=== PATIENT | female | born 2000 | race Caucasian/White ===

== ENCOUNTER 2023-01-06 23:25 | Inpatient (IN) ==
[2023-01-06] MEDS ORDERED: LIDOCAINE 1% LOCAL 20 ML VIAL INFIL PRN (23:57)
[2023-01-06] MEDS ORDERED: OXYTOCIN 30 UNITS/500 ML BAG IV PRN (23:57)
[2023-01-07] MEDS: LACTATED RINGER'S 1,000 ML IV PRN ×2 (00:06→06:36)
--- NOTE | 2023-01-07 00:06 | History & Physical Report ---
Date of Service January 07, 2023 Assessment & Plan (1) Post-dates : Plan: Admit. GBS prophylaxis History of Present Illness Chief Complaint: labor Primary Care Provider: NO PCP 22 F P0000 at 40.2 admitted in early labor. GBS is positive. Allergies Allergy/AdvReac Type Severity Reaction Status Date / Time Penicillins Allergy Hives Verified 01/06/23 10:21 Home Medications Medication Instructions Recorded Confirmed Type famotidine 20 mg tablet 20 mg PO DAILY 01/06/23 01/06/23 History prenat.vits,annette,crs-brrw-bjnbs 1 tab PO DAILY 01/06/23 01/06/23 History Patient History Surgical History History of appendectomy Social History Smoking Status: Never smoker Hx Alcohol Use: No Hx Substance Use: No Preferred Language: Italian Proof Coins Inspector Required: No Beliefs That Will Affect Care: None marital status: Single Current Living Situation: Significant Other Current Living Situation Comment: another roomate Feels Safe at Home: Yes Safety Concerns: Feels Safe At This Time OB History GBS positive [employer] History LGSIL Review of Systems All systems reviewed & are unremarkable except as noted in HPI & below Physical Exam Constitutional: WD/WN, vitals as above Eyes: PERRL, conjunctivae normal, anicteric sclerae Respiratory: normal respiratory effort, lungs clear to auscultation Cardiovascular: RRR, no murmur, no edema Gastrointestinal (Abdomen): Inspection/Auscultation: abdomen normal to inspection Musculoskeletal: Extremities: extremities normal to inspection Skin: no rashes, warm and dry Psychiatric: A+Ox3, euthymic affect Genitourinary: OB Exam Abdomen: + fundal height and + vertex Manual OB Exam: + cervical dilation 4 cm, + cervical effacement 90% and + station -2 Results & Data Vital Signs (Past 12 Hours) Vital Signs Temp Pulse Resp BP 01/06/23 23:45 36.8 C 118 H 18 120/66 Code Status & VTE Plan VTE Prophylaxis Plan VTE Prophylaxis will be ordered: No
[2023-01-07] MEDS ORDERED: ceFAZolin 2000MG 2,000 MG/15 ML SYR IV ONE (00:15)
[2023-01-07 00:39] LABS: Hematocrit (blood only) 35.4 % (37.0-47.0); Hemoglobin 12.1 g/dl (12.0-16.0); Mean Corpuscular Hemoglobin 33.2 pg (25.0-34.0); Mean Corpuscular Hgb Conc 34.2 g/dL (32.0-36.0); Mean Corpuscular Volume 97.3 fL (80.0-100.0); Mean Platelet Volume 12.3 fL (9.4-12.4); Platelet Count 132 K/uL (130-400); RDW Coefficient of Variation 12.6 % (11.5-14.5); RDW Standard Deviation 44.8 fL (36.4-46.3); Red Blood Count 3.64 M/uL (4.20-5.40); White Blood Count 10.67 K/ul (4.8-10.8)
[2023-01-07] MEDS ORDERED: ePHEDrine sulfate 50 MG/ML AMP ONE (02:17)
[2023-01-07] MEDS ORDERED: fentaNYL citrate PF 100 MCG/2 ML VIAL ONE (02:17)
[2023-01-07] MEDS ORDERED: LIDOCAINE 2%/EPINEPHRINE 1:200,000 20 ML PF ONE (02:18)
[2023-01-07] MEDS ORDERED: fentaNYL 2MCG/ML ROPIVACAINE 1.25MG/ML 100 ML BAG EPI ONE (02:18)
[2023-01-07] MEDS ORDERED: SODIUM CHLORIDE 0.9% PF INJ 10 ML VIAL ONE (02:18)
[2023-01-07] MEDS ORDERED: BUPIVACAINE 0.25% PF 30 ML VIAL ONE (02:18)
--- NOTE | 2023-01-07 02:50 | Anesthesiology Consultation ---
Date of Service January 07, 2023 Assessment & Plan Chart Review Chart Review: Acceptable Risk for Labor Epidural Consults Requested none History Height/Weight Height: 5 ft 4 in Weight: 97.522 kg Allergies Allergy/AdvReac Type Severity Reaction Status Date / Time Penicillins Allergy Hives Verified 01/06/23 10:21 Medications Home Medications Medication Instructions Recorded Confirmed Last Taken famotidine 20 mg tablet 20 mg PO DAILY 01/06/23 01/07/23 Unknown prenat.vits,annette,[id number]-[id number] 1 tab PO DAILY 01/06/23 01/07/23 01/06/23 Active Medications Generic Name Dose Route Start Last Admin Trade Name Freq PRN Reason Stop Dose Admin Lactated Ringer's 1,000 mls @ 125 mls/hr 01/06/23 23:57 01/07/23 02:33 Lr IV 01/08/23 23:56 125 mls/hr .Q8H PRN Infusion L&D Protocol Protocol Past Surgical History Surgical History History of appendectomy Social History Smoking Status: Never smoker Hx Alcohol Use: No Hx Substance Use: No Physical Exam Vital Signs Last Vital Signs Temp 36.8 C 01/07/23 02:39 Pulse 93 H 01/07/23 02:48 Resp 20 01/07/23 02:39 BP 102/57 L 01/07/23 02:48 Pulse Ox 99 01/07/23 02:48 Testing Laboratory Results 01/07/23 00:09 Blood Type A Negative 01/07/23 00:09 Antibody Screen NEGATIVE 01/07/23 00:09
[2023-01-07] MEDS ORDERED: diphenhydrAMINE 50 MG/ML VIAL IV PRN (02:52)
[2023-01-07] MEDS ORDERED: fentaNYL citrate PF 100 MCG/2 ML VIAL EPI STA (02:52)
[2023-01-07] MEDS ORDERED: ePHEDrine sulfate 50 MG/ML AMP IV PRN (02:52)
[2023-01-07] MEDS ORDERED: NALOXONE HCL 1 MG in SODIUM CHLORIDE 0.9% 1000ML 1,000 ML IV PRN (02:52)
[2023-01-07] MEDS ORDERED: SODIUM CHLORIDE 0.9% PF INJ 10 ML VIAL EPI STA (02:52)
[2023-01-07] MEDS ORDERED: LIDOCAINE 2% MPF LOCAL 5 ML VIAL EPI PRN (02:52)
[2023-01-07] MEDS ORDERED: fentaNYL 2MCG/ML ROPIVACAINE 1.25MG/ML 100 ML BAG EPI PRN (02:52)
[2023-01-07] MEDS ORDERED: BUPIVACAINE 0.25% PF 30 ML VIAL EPI PRN (02:52)
[2023-01-07] MEDS ORDERED: NALOXONE HCL 0.4 MG/1 ML VIAL/CARP IV PRN (02:52)
[2023-01-07] MEDS ORDERED: LIDOCAINE 2%/EPINEPHRINE 1:200,000 20 ML PF EPI STA (02:52)
[2023-01-07] MEDS ORDERED: BUPIVACAINE 0.25% PF 30 ML VIAL EPI STA (02:52)
[2023-01-07] MEDS ORDERED: fentaNYL citrate PF 100 MCG/2 ML VIAL EPI PRN (02:52)
[2023-01-07] MEDS ORDERED: NALBUPHINE HCL INJ 10 MG/ML AMP IV PRN (02:52)
[2023-01-07] MEDS ORDERED: ROPIVACAINE 0.5% PF 5 MG/ML 20 ML VIAL EPI PRN (02:52)
[2023-01-07] MEDS ORDERED: SODIUM CHLORIDE 0.9% PF INJ 10 ML VIAL EPI PRN (02:52)
[2023-01-07] MEDS ORDERED: ceFAZolin 1000MG 1,000 MG/7.5 ML SYR IV PRN (06:57)
--- NOTE | 2023-01-07 09:11 | Labor Progress Brief Note ---
Date of Service January 07, 2023 Assessment & Plan Admission and Anticipated Discharge Date Admission Date: January 06, 2023 Physical Exam Genitourinary: Manual OB Exam: + cervical dilation 9 cm, + cervical effacement 100%, + station 0 and + amniotic fluid clear OB Exam Monitor Tracing: + external FHT monitor used, + external uterine monitor used, + category I and + normal FHT variability AROM with [place] clear fluid Results & Data Vital Signs (Past 12 Hours) Vital Signs Temp Pulse Resp BP Pulse Ox 01/07/23 07:34 37.0 C 20 01/07/23 09:07 88 104/52 L 01/07/23 09:05 95 H 98 01/07/23 09:00 104 H 98 01/07/23 08:55 102 H 97 01/07/23 08:53 104 H 93 01/07/23 08:50 106 H 99 01/07/23 08:47 106 H 92 01/07/23 08:45 93 H 100 01/07/23 08:40 96 H 100 01/07/23 08:38 100 H 110/70 01/07/23 08:37 101 H 93 01/07/23 08:35 93 H 100 01/07/23 08:30 111 H 98 01/07/23 08:31 108 H 92 01/07/23 08:25 96 H 99 01/07/23 08:23 105 H 115/66 01/07/23 08:20 106 H 98 01/07/23 08:15 116 H 99 01/07/23 08:10 95 H 97 01/07/23 08:08 100 H 18 111/61 01/07/23 08:05 109 H 100 01/07/23 08:00 114 H 98 01/07/23 07:55 125 H 99 01/07/23 07:53 90 111/74 01/07/23 07:52 104 H 94 01/07/23 07:50 111 H 97 01/07/23 07:45 92 H 95 01/07/23 07:41 103 H 93 01/07/23 07:40 101 H 95 01/07/23 07:39 97 H 116/66 01/07/23 07:35 101 H 99 01/07/23 07:30 102 H 97 01/07/23 07:25 101 H 97 01/07/23 07:24 94 H 116/70 01/07/23 07:20 105 H 93 01/07/23 07:15 96 H 99 01/07/23 07:10 92 H 98 01/07/23 07:08 82 97/53 L 01/07/23 07:05 84 97 01/07/23 07:00 93 H 98 01/07/23 06:55 95 H 98 01/07/23 06:53 100 H 96/53 L 01/07/23 06:50 98 H 100 01/07/23 06:30 16 01/07/23 06:30 16 01/07/23 06:45 95 H 99 01/07/23 06:40 88 98 01/07/23 06:39 90 97/51 L 01/07/23 06:37 96 H 94 01/07/23 06:35 93 H 98 01/07/23 06:23 95 01/07/23 06:23 110 H 01/07/23 06:24 100 H 109/60 01/07/23 06:23 96 H 94 01/07/23 06:18 110 H 96 01/07/23 06:13 93 01/07/23 06:13 110 H 01/07/23 06:13 100 H 93 01/07/23 06:10 101 H 117/62 01/07/23 06:08 100 H 93 01/07/23 06:00 18 01/07/23 06:00 18 01/07/23 06:07 100 H 93 01/07/23 05:30 18 01/07/23 05:30 18 01/07/23 06:03 108 H 93 01/07/23 06:01 102 H 94 01/07/23 05:58 98 H 95 01/07/23 05:55 93 H 94 01/07/23 05:53 107 H 105/57 L 96 01/07/23 05:48 95 H 96 01/07/23 05:46 113 H 94 01/07/23 05:43 98 H 96 01/07/23 05:40 91 H 94 01/07/23 05:38 95 H 111/63 96 01/07/23 05:30 18 01/07/23 05:30 18 01/07/23 05:33 101 H 95 01/07/23 05:28 100 H 96 01/07/23 05:24 96 H 116/64 01/07/23 05:23 92 H 98 01/07/23 05:18 116 H 97 01/07/23 05:00 18 01/07/23 05:00 18 01/07/23 05:13 102 H 98 01/07/23 05:08 95 H 119/68 97 01/07/23 05:03 102 H 97 01/07/23 04:58 105 H 92 01/07/23 04:53 106 H 100 01/07/23 04:54 116 H 120/64 01/07/23 04:48 107 H 99 01/07/23 04:43 99 H 96 01/07/23 04:44 111 H 94 01/07/23 04:30 18 01/07/23 04:30 18 01/07/23 04:38 84 97 01/07/23 04:39 82 97/53 L 01/07/23 04:33 83 97 01/07/23 04:28 89 99 01/07/23 04:23 95 H 98 01/07/23 04:22 98 H 104/56 L 01/07/23 04:18 101 H 97 01/07/23 04:13 87 96 01/07/23 04:09 105 H 92 01/07/23 04:00 18 01/07/23 04:00 18 01/07/23 04:08 83 97 01/07/23 04:03 95 H 98 01/07/23 03:58 83 97 01/07/23 03:53 86 98 01/07/23 03:48 87 99 01/07/23 03:30 18 01/07/23 03:30 18 01/07/23 03:43 100 H 98 01/07/23 03:38 86 98 01/07/23 03:33 84 99 01/07/23 03:28 86 98 01/07/23 03:23 112 H 100 01/07/23 03:18 83 98 01/07/23 03:13 89 100 05 03:08 104 H 98 01/07/23 03:00 18 01/07/23 03:00 18 01/07/23 03:03 83 100 01/07/23 02:58 88 100 01/07/23 02:53 98 01/07/23 02:53 99 H 01/07/23 02:53 98 H 102/61 01/07/23 02:50 93 H 107/59 L 01/07/23 02:48 93 H 102/57 L 99 01/07/23 02:47 95 H 108/60 01/07/23 02:43 99 01/07/23 02:43 102 H 01/07/23 02:44 95 H 108/55 L 01/07/23 02:43 105 H 113/56 L 01/07/23 02:40 103 H 108/57 L 01/07/23 02:38 103 H 99 01/07/23 02:39 36.8 C 108 H 20 110/56 L 01/07/23 02:33 112 H 100 01/07/23 02:28 123 H 100 01/06/23 23:45 36.8 C 118 H 18 120/66
[2023-01-07] MEDS ORDERED: HYDROCORTISONE ACETATE 25 MG SUPP PR PRN (11:13)
[2023-01-07] MEDS ORDERED: ACETAMINOPHEN 325 MG TAB PO PRN (11:13)
[2023-01-07] MEDS ORDERED: bisacodyL 10 MG SUPP PR PRN (11:13)
[2023-01-07] MEDS ORDERED: DIPHTHERIA/TETANUS/PERTUSSIS Vaccine (Tdap, Age 7+yrs) 0.5mL SYR/VL IM ONE (11:13)
[2023-01-07] MEDS ORDERED: OXYTOCIN 30 UNITS/500 ML BAG IV PRN (11:13)
[2023-01-07] MEDS ORDERED: BENZOCAINE 20% AER SPR 82.5 GM CAN EXT PRN (11:13)
[2023-01-07] MEDS ORDERED: IBUPROFEN 600 MG TAB PO PRN (11:13)
--- NOTE | 2023-01-07 11:18 | Delivery Summary ---
Vaginal Delivery Summary Date of Service January 07, 2023 Vaginal Delivery Summary Delivery Note live male DOREEN over intact perineum with delayed cord clamping with and Apgars 8/8 weight pending. Cord blood obtained followed by spontaneous delivery of intact placenta with 3VC. No tears. EBL 100 ml. Final sponge and instrument count are correct. Mom and baby stable.
--- NOTE | 2023-01-07 11:32 | Anesthesia Procedure Note ---
Date of Service January 07, 2023 Anesthesia Post Epidural Note Vital Signs Vital Signs: Temp Pulse Resp BP Pulse Ox 37.0 C 95 H 18 116/57 L 97 01/07/23 07:34 01/07/23 11:24 01/07/23 10:08 01/07/23 11:24 01/07/23 11:05 Notes Mental Status: alert / awake / arousable Nausea / Vomiting: adequately controlled Pain: adequately controlled Airway Patency, RR, SpO2: stable & adequate BP & HR: stable & adequate Hydration State: stable & adequate Neuraxial Anesthesia: was administered and sensory block is resolving Anesthetic Complications: no major complications apparent and Pt Satisfied with anesthetic care Epidural: Removed without complications and With tip intact
[2023-01-07] MEDS: DOCUSATE SODIUM 100 MG CAP PO SCH (21:00)
[2023-01-08 07:15] LABS: Hematocrit (blood only) 33.7 % (37.0-47.0); Hemoglobin 11.3 g/dl (12.0-16.0); Mean Corpuscular Hgb Conc 33.5 g/dL (32.0-36.0); Mean Corpuscular Volume 98.5 fL (80.0-100.0); Mean Platelet Volume 11.9 fL (9.4-12.4); Platelet Count 112 K/uL (130-400); RDW Coefficient of Variation 12.7 % (11.5-14.5); RDW Standard Deviation 45.6 fL (36.4-46.3); Red Blood Count 3.42 M/uL (4.20-5.40); White Blood Count 13.28 K/ul (4.8-10.8)
[2023-01-08] MEDS ORDERED: PRENATAL VITAMIN 1 TAB PO SCH ×2 (08:00→09:00)
[2023-01-08] MEDS ORDERED: FERROUS SULFATE 325 MG TAB PO SCH (08:00)
[2023-01-08] MEDS: DOCUSATE SODIUM 100 MG CAP PO SCH (08:22)
[2023-01-08] MEDS ORDERED: FAMOTIDINE 20 MG TAB PO SCH (09:00)
--- NOTE | 2023-01-08 09:43 | Obstetrical Progress Note ---
Date of Service January 08, 2023 Assessment & Plan Admission and Anticipated Discharge Date Admission Date: January 06, 2023 Subjective Patient is seen and examined. She feels well, no complaints. Desires d/c today Ambulating without dizziness Voiding without difficulty Tolerating regular diet with out N&V Bleeding is minimal No fever/ chills/ CP/ SOB/ N&V/ Leg pain Breast feeding without problems Lab Results 01/07/23 01/07/23 01/07/23 Range/Units 00:00 00:09 00:09 WBC 10.67 (4.8-10.8) K/ul RBC 3.64 L (4.20-5.40) M/uL Hgb 12.1 (12.0-16.0) g/dl Hct 35.4 L (37.0-47.0) % MCV 97.3 (80.0-100.0) fL MCH 33.2 (25.0-34.0) pg MCHC 34.2 (32.0-36.0) g/dL RDW Std Deviation 44.8 (36.4-46.3) fL RDW Coeff of Margaret 12.6 (11.5-14.5) % Plt Count 132 (130-400) K/uL MPV 12.3 (9.4-12.4) fL SARS-CoV-2, RNA, NAAT NEGATIVE (NEGATIVE) Blood Type A Negative Antibody Screen NEGATIVE 01/08/23 Range/Units 06:43 WBC 13.28 H (4.8-10.8) K/ul RBC 3.42 L (4.20-5.40) M/uL Hgb 11.3 L (12.0-16.0) g/dl Hct 33.7 L (37.0-47.0) % MCV 98.5 (80.0-100.0) fL MCH 33.0 (25.0-34.0) pg MCHC 33.5 (32.0-36.0) g/dL RDW Std Deviation 45.6 (36.4-46.3) fL RDW Coeff of Margaret 12.7 (11.5-14.5) % Plt Count 112 L (130-400) K/uL MPV 11.9 (9.4-12.4) fL SARS-CoV-2, RNA, NAAT (NEGATIVE) Blood Type Antibody Screen Vital Signs Temp Pulse Resp BP Pulse Ox O2 Del Method 01/08/23 07:35 36.8 C 83 18 100/66 99 Room Air 01/08/23 03:30 36.8 C 85 18 108/73 98 Room Air 01/07/23 23:25 36.6 C 94 H 16 97/60 L 97 Room Air PE: General: Alert, orientedx3, NAD Abd: soft, NT, fundus firm, below Umbilicus Perineum intact, Lochia rubra minimal Ext; NT, no edema AP: 22 yo s/p , ppd# 1 VSS Afebrile doing well Continue routine care All questions were answered D/C home this afternoon per her request Results & Data Vital Signs (Past 12 Hours) Vital Signs Temp Pulse Resp BP Pulse Ox O2 Del Method 01/08/23 07:35 36.8 C 83 18 100/66 99 Room Air 01/08/23 03:30 36.8 C 85 18 108/73 98 Room Air 01/07/23 23:25 36.6 C 94 H 16 97/60 L 97 Room Air
[2023-01-08] MEDS ORDERED: bisacodyL 5 MG TABEC PO SCH (20:00)
== END 2023-01-08 15:05 | disposition home or self-care (01) | DRG 807 ==
LOC: OPB 23:25 → 4S1 23:27 → 4E2 01-07 13:54